=== PATIENT | female | born 1990 | race Caucasian/White ===

== ENCOUNTER 2019-10-19 09:17 | Emergency (ER) | payer OTHER ==
[2019-10-19 09:50] VITALS: BP 113/62; PULSE 85; TEMP 98; BMI 29.2
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
[2019-10-19] MEDS ORDERED: KETOROLAC TROMETHAMINE 30 MG/1 ML VIAL IM ONE (10:49)
== END 2019-10-19 12:00 | disposition home or self-care (01) ==
LOC: JERFT 09:17
PROC: 3E0233Z Introduction of Anti-inflammatory into Muscle, Percutaneous Approach (ICD-10-PCS; principal; 2019-10-19)
DX: M79.605 Pain in left leg (principal); M25.552 Pain in left hip; M25.562 Pain in left knee; M25.572 Pain in left ankle and joints of left foot; V03.10XA Pedestrian on foot injured in collision with car, pick-up truck or van in traffic accident, initial encounter; Y92.414 Local residential or business street as the place of occurrence of the external cause; Y93.89 Activity, other specified; Y99.8 Other external cause status
CPT/HCPCS: 73523-TC-FY; 73562-TC-LT-FY; 73610-TC-LT-FY; 73630-TC-LT; 99281-25

== ENCOUNTER 2021-02-02 17:41 | Emergency (ER) | payer OTHER ==
[2021-02-02 17:50] VITALS: BP 123/78; PULSE 88; TEMP 99.3; BMI 51.8
[2021-02-02] MEDS ORDERED: IBUPROFEN 400 MG TABLET (FP) PO ONE ×2 (18:06→18:10)
== END 2021-02-02 18:29 | disposition home or self-care (01) ==
LOC: FER 17:41
DX: M25.571 Pain in right ankle and joints of right foot (principal)
CPT/HCPCS: 99283-25